=== PATIENT | female | born 1990 | race African-American/Black ===

== ENCOUNTER → 2023-11-26 14:08 | Outpatient (BNVA) | payer OTHER, SELFPAY | PROVIDERS: Visit Provider Physician Assistant | DX: Z13.89 Encounter for screening for other disorder (principal) | CPT/HCPCS: 99203 ==

== ENCOUNTER → 2023-12-17 09:37 | Outpatient (BNVA) | payer OTHER, SELFPAY | PROVIDERS: Visit Provider Physician Assistant | DX: Z13.89 Encounter for screening for other disorder (principal) | CPT/HCPCS: 99213 ==

== ENCOUNTER 2024-01-13 14:00 | Outpatient (RCR) | payer OTHER, SELFPAY ==
--- NOTE | 2023-12-24 15:17 | MHC.PT.EP ---
[facility] [place] [facility] [place] [facility] [address] [phone] F: [phone] F: [phone] F: [phone] F: [phone] Physical Therapy Plan of Care Date of Evaluation: 12/24/23 Date of Surgery: Diagnosis: Lumbar strain s/p fall. Assessment: Pt is a 33 y/o female referred to PT for eval and treat of lumbar strain s/p fall on ice at work on November 16 2023 which is resulting in decreased tolerance for standing, sitting, and walking for increased duration as well as performing fitness activities secondary to decreased trunk ROM, decreased core strength, increased LE tissue tension, and midline LBP. Pt is deemed an appropriate candidate to receive skilled PT services to address their physical impairments in order to improve their functional ability. Frequency and Duration: The patient will be seen 2 x/ wk x 4 wks. Short Term Goals: Initiate home program. Improve baseline pain to at most 0-3/10; initial: 1-5/10. I with back basics. [facility] Goals: I with home program. Pt will reports no pain with walking long distances. Pt will return to gym fitness activities. Improve Core strength by at least 1/2 MMT grade. Treatment Plan: Modalities to reduce pain, spasms and effusion. Manual therapy to restore motion and function. Therapeutic exercise to improve strength and flexibility. Neuromuscular re-education for posture and balance. Therapeutic activities to return to functional activities of daily living. Electronically signed by: Dmitry Escobar PT. Please sign and return to therapist. Thank you for your referral.
--- NOTE | 2024-04-18 16:00 | MHC.PT.DC ---
[facility] [place] [facility] [place] Office [place] Office [address] [phone] F: [phone] F: [phone] F: [phone] F: [phone] Physical Therapy Discharge Report Diagnosis: Lumbar strain s/p fall. Date of Surgery: Date of Evaluation: 12/24/23 Date of Discharge: 04/18/24 Treatments to Date: 5 Cancellations to Date: 1 No Shows to Date: 3 Discharge Status: Visit Non-compliance Discharge Summary: . Electronically signed by: Dmitry Escobar PT. Please sign and return to therapist. Thank you for your referral.
== END 2024-04-18 16:01 | disposition home or self-care (01) ==
LOC: HO.PT 14:00
PROVIDERS: Visit Provider Physician Assistant
DX: S39.012D Strain of muscle, fascia and tendon of lower back, subsequent encounter (principal)
CPT/HCPCS: 97110; 97161; 97530

== ENCOUNTER 2024-04-28 09:58 | Outpatient (AMB) | payer OTHER, SELFPAY ==
[2024-04-28 10:12] VITALS: BP 142/72; PULSE 73; O2SAT 99; BMI 43.3
--- NOTE | 2024-04-28 10:12 | A.OFFPC_ITS ---
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 Had takent Butabital/acetaminophen in the past, she states she would also like to talk about weight loss, and is concerned about PCOS, has a history of Fibroid, and would like to address spots on her eyelids. 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 ?? Prior PCP:? [facility] Last office visit/CPE:? 2019 Acute issue(s):? H/A Wt Loss PCOS Fibroid Eyelid ?? PMHx:? Headaches. SurgHx:? None FHx:? Mom: SLE, DM, HTN, Cervical CA. Dad: HTN, EtOH. SocHx:? Nonsmoker. EtOH Social. No drugs. [facility] Medical History (Updated 04/28/24 @ 11:15 by Malvin Sesay MD) Uterine fibroid Headache Surgical History (Updated 04/28/24 @ 10:23 by Claribel Wade CMA) No pertinent past surgical history Family History (Updated 04/28/24 @ 10:26 by Claribel Wade CMA) Mother Asthma High blood pressure Lupus Diabetes Thyroid disorder Father Alcoholism Sister High cholesterol Social History (Updated 04/28/24 @ 10:29 by Claribel Wade CMA) Household Members: Children Both parents involved: No Caregiver staying overnight: No Housing: Apartment Are you a primary residential care facility manager to a significant other at home: No Do you presently have visiting nurse or other home services: No 75 years or older and lives alone: No Alcohol intake: current Alcohol intake frequency: holidays/special occasions only Alcohol type: wine Patient Tobacco Use Status: Never used Tobacco e-Cigarette/Vaping Use: Never Used Special gaurav needs: No Agree to transfusion: Yes service: No Current occupational status: employed 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 Cognitive needs: No Hearing needs: No Vision needs: No Questionnaire PHQ-9 Over the last 2 weeks, how often have you been bothered by any of the following problems? 1. Little interest or pleasure in doing things: several days 2. Feeling down, depressed, or hopeless: not at all 3. Trouble falling or staying asleep, or sleeping too much: more than half the days 4. Feeling tired or having little energy: more than half the days 5. Poor appetite or overeating: several days 6. Feeling bad about yourself - or that you are a failure or have let yourself or your family down: not at all 7. Trouble concentrating on things, such as reading the newspaper or watching television: several days 8. Moving or speaking so slowly that other people could have noticed. Or the opposite - being so fidgety or restless that you have been moving around a lot more than usual: not at all 9. Thoughts that you would be better off or of hurting yourself in some way: not at all Total score: 7 Source: Developed by Drs. Say Narayan, Lois Spring, Pedro Chase and colleagues, with an educational wilber from [employer]. AUDIT C Alcohol Use Questionnaire (AUDIT-C) 1. How often do you have a drink containing alcohol?: 2-4 times a month 2. How many drinks containing alcohol do you have on a typical day when you are drinking?: 1 or 2 3. How often do you have six or more drinks on one occasion?: Never Total Score: 2 APRIL-7 AMB Questionnaire APRIL-7 Date APRIL - 7 assessed: 04/28/24 Feeling nervous, anxious, or on edge: 1 = Several days Not being able to stop or control worryin = More than half the days Worrying too much about different things: 1 = Several days Trouble relaxin = Several days Being so restless that it is hard to sit still: 0 = Not at all Becoming easily annoyed or irritable: 0 = Not at all Feeling afraid as if something awful might happen: 0 = Not at all Total APRIL-7 score (0-4 normal; 5-9 mild; 10-14 moderate; 15-21 severe): 5 Source: Developed by Drs. Say Narayan, Lois Spring, Pedro Chase and colleagues, with an educational wilber from [employer]. Review of Systems Const Denies chills, Denies fatigue, Denies fever(s), Denies headache(s) and Denies weakness ENT Denies dizziness and Denies headache(s) Card Denies chest pain, Denies lightheadedness, Denies dyspnea and Denies other (Palpitations) Resp Denies cough, Denies dyspnea, Denies wheezing and Denies other ( shortness of breath) Musc Denies numbness and Denies tingling Neuro Denies dizziness, Denies headache(s), Denies numbness, Denies tingling, Denies paresthesias and Denies weakness Psych Denies anxiety and Denies depression Endo Denies fatigue Aller/Immun Denies wheezing Physical exam (Primary Care) Vital Signs: Last Vital Signs Pulse 73 04/28/24 10:12 BP 142/72 H 04/28/24 10:12 Pulse Ox 99 04/28/24 10:12 Oxygen Delivery Method Room Air 04/28/24 10:12 BMI result Body Mass Index 43.3 Tobacco/Smoking Status: Tobacco use Status Tobacco use date assessed 04/28/24 04/28/24 10:35 Patient Tobacco Use Status Never used Tobacco 04/28/24 10:35 e-Cigarette/Vaping Use Never Used 04/28/24 10:35 PHQ-9: PHQ-9 Score PHQ-9: Total score 7 04/28/24 10:50 Const General: no acute distress and well developed Nutritional Appearance: well nourished Orientation/consciousness: patient oriented x3 HENMT Other: Yellow stripes on both eyelids Head: Yes normocephalic and Yes atraumatic Eyes General: appearance normal, both eyes and all related structures Pupils: Equal, round and reactive pupils present EOM: EOMs intact bilaterally Resp Effort & Inspection: normal respiratory effort Auscultation: clear to auscultation bilaterally Cardio Rate: regular rate Rhythm: regular rhythm Heart sounds: S1 normal heart sound present, S2 normal heart sound present, no gallops, no murmurs and no rubs Neuro General: patient oriented x3 and gait normal Cranial nerves: Yes Equal, round and reactive pupils present Psych Affect: normal affect Assessment and Plan Assessment & Plan (1) Headache: Code(s): R51.9 - Headache, unspecified Plan: Frequent?and?chronic?ongoing?headaches?which?she?has?managed?with?ibuprofen?and? Fioricet?in?the?past. Get?them?only?about?twice?per?week. ?Does?not?appear?to?be?rebound?headache Will?give?her?a?limited?script?of?Fioricet; 8?per?month She?will?try?relaxation,?nasal?saline?and?ibuprofen?prior?to?using?Fioricet. If?this?is?not?helping?or?she?is?needing?increased?usage, will?refer?to?Neurology. (2) Morbid obesity with BMI of 40.0-44.9, adult: Code(s): E66.01 - Morbid (severe) obesity due to excess calories; Z68.41 - Body mass index [BMI] 40.0-44.9, adult Plan: Will?monitor?and?encouraged?weight?loss (3) History of uterine fibroid: Code(s): Z86.018 - Personal history of other benign neoplasm Plan: Referred?to?production material coordinator (4) Screening for cervical cancer: Code(s): Z12.4 - Encounter for screening for malignant neoplasm of cervix Plan: Referred?to?production material coordinator (5) Xanthelasma of eyelid, bilateral: Code(s): H02.63 - Xanthelasma of right eye, unspecified eyelid; H02.66 - Xanthelasma of left eye, unspecified eyelid Plan: Check?labs?including?cholesterol?levels May?need?referral?to?Dermatology Patient?has?all around patternmaker?and?can?discuss?with?her?eye?doctor?as?well. (6) Laboratory exam ordered as part of routine general medical examination: Code(s): Z00.00 - Encounter for general adult medical examination without abnormal findings Plan: Check?lab Orders: Orders Complete Blood Count Auto Diff Today Z00.00 - Encounter for general adult medical examination without abnormal findings Microalbumin, Random (w Creat) Today I10 - Essential (primary) hypertension Lipid Panel Today Z00.00 - Encounter for general adult medical examination without abnormal findings TSH reflex Free T4 Today Z00.00 - Encounter for general adult medical examination without abnormal findings Comprehensive [place]. Panel Fast Today Z00.00 - Encounter for general adult medical examination without abnormal findings UA and rflx microscopic Today Z00.00 - Encounter for general adult medical examination without abnormal findings Erythrocyte Sedimentation Rate Today R51.9 - Headache, unspecified Referrals GOLD FRAME ASSEMBLER Referral Z12.4 - Encounter for screening for malignant neoplasm of cervix, Z86.018 - Personal history of other benign neoplasm Medications: New hxltscmvzq-wnzffwlwkcuqi-yray 50-300-40 mg (Fioricet) MassPat Verified. 1 cap PO DAILY 30 days PRN 8 caps 0RF headache Coding Level of Care Code New Pt Level 4 (40961) Diagnoses Headache R51.9 Morbid obesity with BMI of 40.0-44.9, adult E66.01; Z68.41 History of uterine fibroid Z86.018 Screening for cervical cancer Z12.4 Xanthelasma of eyelid, bilateral H02.63; H02.66 Laboratory exam ordered as part of routine general medical examination Z00.00
== END 2024-04-28 11:35 | disposition home or self-care (01) ==
PROVIDERS: PCP Family Medicine; Visit Provider Family Medicine
DX: R51.9 Headache, unspecified (principal); E66.01 Morbid (severe) obesity due to excess calories; Z68.41 Body mass index [BMI] 40.0-44.9, adult; Z86.018 Personal history of other benign neoplasm; Z12.4 Encounter for screening for malignant neoplasm of cervix; H02.63 Xanthelasma of right eye, unspecified eyelid; H02.66 Xanthelasma of left eye, unspecified eyelid; Z00.00 Encounter for general adult medical examination without abnormal findings
CPT/HCPCS: 99204

== ENCOUNTER 2024-04-28 11:25 | Outpatient (REF) | payer OTHER, SELFPAY ==
[2024-04-28 14:20] LABS: Appearance Urine Clear; Color Urine Yellow; Glucose Urine UA Negative (Negative); Leukocyte Esterase Urine Negative (Negative); Nitrite Urine Negative (Negative); PH 5.5 (5.0-9.0); UMIC TRIGGER UA YES; Urine Blood Trace (Negative); Urine Ketones Negative (Negative); Urine Protein Negative (Neg-Trace)
[2024-04-28 14:21] LABS: MANUAL DIFF FLAG NO
[2024-04-28 14:26] LABS: Bacteria Urine 1+ (None Seen); Hyaline Casts Urine 0-2 /LPF (0-2); RBC Urine 0-2 /HPF (0-2); Squamous Epithelial Cell Urine 0-2 /HPF (0-2); WBC Urine 0-5 /HPF (0-5)
[2024-04-28 14:47] LABS: Basophils Percent Auto 0.7 % (0-2); Eosinophils Absolute Auto 0.1 X10*3/uL (0.0-0.4); Eosinophils Percent Auto 0.8 % (0-4); Hematocrit 38.8 % (37.0-47.0); Hemoglobin 13.2 g/dl (12.0-16.0); Imm Gran Abs Auto 0.02 X10*3/uL (0.00-0.03); Imm Gran Pct Auto 0.3 % (0.0-0.4); Lymphocytes Absolute Auto 2.6 X10*3/uL (1.2-4.9); Lymphocytes Percent Auto 41.9 % (20-40); Mean Corpuscular Hemoglobin 27.6 pg (27.0-33.0); Monocytes Absolute Auto 0.4 X10*3/uL (0.1-1.2); Monocytes Percent Auto 6.4 % (2-11); Neutrophils Percent Auto 49.9 % (45-73); Platelet Count 309 X10*3/uL (160-400); Red Blood Count 4.79 X10*6/uL (4.20-5.50); Red Cell Distribution Width 12.6 % (11.0-16.0); White Blood Count 6.1 X10*3/uL (4.8-10.8)
[2024-04-28 14:51] LABS: Alanine Aminotransferase 14 U/L (0-31); Alkaline Phosphatase 61 U/L (39-117); Anion Gap 11 (12-20); Aspartate Amino Transferase 16 U/L (5-31); Bilirubin Total 0.2 mg/dL (0.0-1.0); Blood Urea Nitrogen 16 mg/dL (9-16); Calcium 10.1 mg/dL (8.4-10.2); Carbon Dioxide 29 mmol/L (22-29); Chloride 104 mmol/L (96-108); Cholesterol 202 mg/dL (<200); Estimated Glomerular Filt Rate > 60; Glucose Fasting 92 mg/dL (60-99); HDL Cholesterol 47 mg/dL (>40); LDL Cholesterol Calculated 138 mg/dL (<100); Potassium 4.2 mmol/L (3.3-5.1); Sodium 140 mmol/L (135-145); Triglycerides 85 mg/dL (<150)
[2024-04-28 14:52] LABS: Creatinine Urine 182.07 mg/dL; Microalbum/Creatinine Ratio Ur 3.2 ug/mg cr (<30)
[2024-04-28 14:57] LABS: TSH reflex Free T4 1.26 uIU/mL (0.32-4.0)
[2024-04-28 15:22] LABS: Erythrocyte Sedimentation Rate 17 MM/HR (0-20)
== END 2024-04-28 11:26 | disposition home or self-care (01) ==
LOC: HO.WFDLDS 11:25
PROVIDERS: Visit Provider Family Medicine
DX: Z00.00 Encounter for general adult medical examination without abnormal findings (principal); I10 Essential (primary) hypertension; R51.9 Headache, unspecified
CPT/HCPCS: 36415; 80053; 80061; 81001; 82043; 82570; 84443; 85025; 85652

== ENCOUNTER 2024-06-08 10:20 | Outpatient (REF) | payer OTHER, SELFPAY ==
[2024-06-13 04:10] LABS: CT PCR NOT DETECTED (Not Detect.); NG PCR NOT DETECTED (Not Detect.)
[2024-06-13 09:01] LABS: Bacterial Vaginosis PCR POSITIVE (Negative); Candida Group PCR NOT DETECTED (Not Detect); Candida glab krusei PCR NOT DETECTED (Not Detect); Trichomonas vaginalis PCR NOT DETECTED (Not Detect)
[2024-06-15 11:43] LABS: HPV mRNA E6/E7 Detected (Not Detected)
[2024-06-19 14:44] LABS: HPV 16 RNA Not Detected
== END 2024-06-08 10:21 | disposition home or self-care (01) ==
LOC: HO.LAB 10:20
PROVIDERS: PCP Family Medicine; Visit Provider Advanced Practice Midwife
DX: Z12.4 Encounter for screening for malignant neoplasm of cervix (principal); Z11.51 Encounter for screening for human papillomavirus (HPV); Z20.2 Contact with and (suspected) exposure to infections with a predominantly sexual mode of transmission; N89.8 Other specified noninflammatory disorders of vagina; E66.01 Morbid (severe) obesity due to excess calories; Z68.41 Body mass index [BMI] 40.0-44.9, adult
CPT/HCPCS: 0352U; 36415; 87491; 87591; 87624; 87625; 88175

== ENCOUNTER 2024-06-08 10:20 | Outpatient (AMB) | payer OTHER, SELFPAY ==
--- NOTE | 2024-06-08 10:39 | MHC.OFFVIS ---
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 COORDINATOR Annual/PCP Ref Manufacturing Production Technician Services: Manufacturing Production Technician Present Information Interpreted: clinical only Heater Planer Operator: Heater Planer Operator Present Allergies No Known Allergies Allergy (Verified 06/08/24 10:43) Medication List - Last Reconciled 06/08/24 by Maria T Kingsley CNM rrphyauquo-rzojticmms-cde-cod 63-805-46-30 mg 1 cap PO Q4H PRN newaehpzwv-eamonyushjbec-ufbn 50-300-40 mg (Fioricet) 1 cap PO DAILY PRN 30 days ibuprofen 800 mg PO TID Is last menstrual period known: Yes Last menstrual period: 05/25/24 Do you need a note to return to daycare/school/sports/work: No HPI HPI ADMISSIONS COORDINATOR Annual/PCP Ref: Details: 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 She thought she had a [facility] and there were no Pap results in her portal. She had a [facility] 3 years [facility] a [facility] but she did not like it so she had it removed and now she used condoms her last intercourse was in March she is maybe interested in getting on control pills this came up during our discussion. She will still use condoms for safer sex. She is interested in getting tested for STIs. She was told she had a small fibroid but it was benign her periods have gotten a little bit heavier however. [facility], [facility] Medical History Uterine fibroid Headache Surgical History No pertinent past surgical history Family History Mother Asthma High blood pressure Lupus Diabetes Thyroid disorder Father Alcoholism Sister High cholesterol Social History Household Members: Children Both parents involved: No Caregiver staying overnight: No Housing: Apartment Are you a primary daycare manager to a significant other at home: No Do you presently have visiting nurse or other home services: No 75 years or older and lives alone: No Alcohol intake: current Alcohol intake frequency: holidays/special occasions only Alcohol type: wine Patient Tobacco Use Status: Never used Tobacco e-Cigarette/Vaping Use: Never Used Special gaurav needs: No Agree to transfusion: Yes service: No Current occupational status: employed 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 Cognitive needs: No Hearing needs: No Vision needs: No Female Reproductive History Menstrual Date of last menstrual period: 05/25/24 control method: none Total pregnancies: 2 Full term: 2 History of abnormal pap smear: No (previous pap 2022,neg(per patient)) Physical Exam Vital Signs: Last Vital Signs BP 118/62 06/08/24 10:42 BMI result Body Mass Index 43.1 Const General: healthy appearing, comfortable, no acute distress, well developed and alert Nutritional Appearance: average body habitus Orientation/consciousness: patient oriented x3 Limitations: no limitations HEENT Head: Yes normocephalic Neck Neck: Yes normal visual inspection Chest Chest palpation & inspection: normal inspection of the chest Breast/axilla inspection: normal inspection of the breasts and normal inspection of the axillae Breast/axilla palpation: normal palpation of the breasts and normal palpation of the axillae Resp Effort & Inspection: normal respiratory effort GI Inspection: Yes normal to inspection, No Abdominal wall edema and No distended Palpation (GI): Soft to palpation and nontender Other: Multiparous cervix pink with multiple nabothian cysts visible. Discharge is clear healthy appearing uterus does not feel enlarged anteverted mobile nontender adnexa nontender very good tone with Kegel General: Yes bladder normal to palpation External Female Exam: normal external appearance and normal appearance of the urethra Speculum Exam - Vagina: normal appearance of the vagina, normal palpation and normal vaginal discharge Speculum Exam - Cervix: normal appearance of the cervix, normal palpation and nontender Bimanual exam- vagina & uterus: normal bimanual exam, normal palpation, uterine size normal, bladder normal to palpation, consistency normal, normal palpation, uterine mobility normal, uterine shape normal, No Cervical tenderness present, non-tender and no cervical motion tenderness Bimanual Exam- Adnexa, other: normal adnexae, no masses, normal and No adnexal tenderness Neuro General: patient oriented x3 Assessment & Plan Assessment & Plan (1) History of uterine fibroid: Code(s): Z86.018 - Personal history of other benign neoplasm Category: Medical (2) Screening for cervical cancer: Code(s): Z12.4 - Encounter for screening for malignant neoplasm of cervix Category: Medical (3) Encounter for screening examination for sexually transmitted disease: Code(s): Z11.3 - Encounter for screening for infections with a predominantly sexual mode of transmission Category: Medical (4) control counseling: Code(s): Z30.09 - Encounter for other general counseling and advice on contraception Category: Medical (5) Morbid obesity with BMI of 40.0-44.9, adult: Code(s): E66.01 - Morbid (severe) obesity due to excess calories; Z68.41 - Body mass index [BMI] 40.0-44.9, adult Category: Medical Plan -----Discussed in this visit the following: healthy balanced diet, regular and consistent exercise, getting recommended health screens, doing the best she can for her particular health concerns, kegel exercises, pap smear screening and followup recommendations, mammography screening and SBE, normal changes in cycles in her life stage--- . Discussed condom use she is planning to continue with them. However she decided that she is interested in getting on control I am prescribing progestin only pills for her because she is 34 years old and 1 of her blood pressures was a little bit borderline elevated it it. I recommend she start at the beginning of her next period 1 pill every day I am also ordering a pelvic ultrasound to check on her fibroid and we can have a follow-up visit that can be a tele visit if she chooses if her blood pressure has been checked and is stable with her primary care provider. Will have the visit after the ultrasound and after she has been on the pills see how she is doing. I am ordering blood work for her to get done downstairs for STI screens.. Orders: Orders Hepatitis C Antibody Today Z11.3 - Encounter for screening for infections with a predominantly sexual mode of transmission, Z12.4 - Encounter for screening for malignant neoplasm of cervix, Z86.018 - Personal history of other benign neoplasm US pelvic and transvaginal Today Z11.3 - Encounter for screening for infections with a predominantly sexual mode of transmission, Z86.018 - Personal history of other benign neoplasm Hepatitis B Surface Antigen Today Z11.3 - Encounter for screening for infections with a predominantly sexual mode of transmission, Z12.4 - Encounter for screening for malignant neoplasm of cervix, Z86.018 - Personal history of other benign neoplasm HIV Ab/Ag Today Z11.3 - Encounter for screening for infections with a predominantly sexual mode of transmission, Z12.4 - Encounter for screening for malignant neoplasm of cervix, Z86.018 - Personal history of other benign neoplasm Syphilis Screen Today Z11.3 - Encounter for screening for infections with a predominantly sexual mode of transmission, Z12.4 - Encounter for screening for malignant neoplasm of cervix, Z86.018 - Personal history of other benign neoplasm Medications: New norethindrone (contraceptive) 0.35 mg PO DAILY 84 tabs 0RF Coding Level of Care Code New Pt Prev Care 18-39yr(22560 Diagnoses History of uterine fibroid Z86.018 Screening for cervical cancer Z12.4 Encounter for screening examination for sexually transmitted disease Z11.3 control counseling Z30.09 Morbid obesity with BMI of 40.0-44.9, adult E66.01; Z68.41
[2024-06-08 10:42] VITALS: BP 118/62; BMI 43.1
== END 2024-06-08 13:05 | disposition home or self-care (01) ==
LOC: HO.HWSM 10:20
PROVIDERS: PCP Family Medicine; Visit Provider Advanced Practice Midwife
DX: Z01.419 Encounter for gynecological examination (general) (routine) without abnormal findings (principal); Z30.09 Encounter for other general counseling and advice on contraception; E66.01 Morbid (severe) obesity due to excess calories; Z68.41 Body mass index [BMI] 40.0-44.9, adult
CPT/HCPCS: 99385

== ENCOUNTER 2024-06-14 11:14 | Outpatient (REF) | payer OTHER, SELFPAY ==
--- NOTE | ~2024-06-14 | US_ITS ---
EXAMINATION: US PELVIS CLINICAL INFORMATION: History of uterine fibroid, screening, last menstrual period 05/25/2024. COMPARISON: None available. TECHNIQUE: Ultrasound of the pelvis is performed using both transabdominal and transvaginal transducers along with Doppler. Transvaginal imaging is performed due to inadequate visualization transabdominally. FINDINGS: The uterus is anteverted and measures 19.0 x 7.9 x 10.2 cm. 7.3 x 6.6 x 7.9 cm fibroid. Endometrial thickness is 9 mm, although visualization of the endometrium is somewhat limited due to the uterine fibroid. No significant free fluid. Nabothian cysts with associated echogenic foci characteristic of punctate calcifications. Right ovary measures 3.1 x 1.9 x 2.3 cm, volume 7.1 mL. Left ovary measures 4.0 x 2.4 x 2.2 cm, volume 11.0 mL. US/US pelvic and transvaginal IMPRESSION: 1. Enlarged uterus with large 7.9 cm uterine fibroid. 2. Endometrial thickness is 9 mm, although visualization of the endometrium is somewhat limited due to the uterine fibroid.
[2024-06-15 07:50] LABS: Syphilis Screen Nonreactive (Nonreactive)
[2024-06-15 08:11] LABS: HBsAGNum1 0.24 S/CO (0.00-0.99); HIV AB/AG Nonreactive (Nonreactive); HIV Num 1 0.05 S/CO (0.00-0.99); Hepatitis B Surface Antigen Negative (Negative); ~HepC Num1 0.09 S/CO (0.00-0.79); ~Hepatitis C Antibody Nonreactive (Nonreactive)
== END 2024-06-14 11:15 | disposition home or self-care (01) ==
LOC: HO.US 11:14
PROVIDERS: PCP Family Medicine; Visit Provider Advanced Practice Midwife
DX: Z11.4 Encounter for screening for human immunodeficiency virus [HIV] (principal); Z86.018 Personal history of other benign neoplasm; Z20.2 Contact with and (suspected) exposure to infections with a predominantly sexual mode of transmission
CPT/HCPCS: 36415; 76830; 76856; 86780; 86803; 87340; 87389

== ENCOUNTER 2024-07-20 09:54 | Outpatient (AMB) | payer OTHER, SELFPAY ==
--- NOTE | 2024-07-20 10:16 | MHC.PC.OV ---
Vital Signs 07/20/24 10:18 Height 5 ft 4 in Weight 252 lb 2 oz BMI 43.3 BP 112/80 Blood Pressure Location Rt brachial Position Sitting Pulse 85 Pulse Source Pulse Oximeter Pulse Oximetry (%) 96 Oxygen Delivery Method Room Air Intake Visit Reasons: CPE with f/u labs and health maint. Intake Note: Patient reports she is here for her physical, review labs and ultrasound. Patient has no other concerns. Utility Appraiser Required: No Accompanied by: Self / Same As Patient Allergies No Known Allergies Allergy (Verified 07/20/24 10:23) Tobacco use date assessed: 04/28/24 Dental Screening Dental Screen Date: 04/28/24 HPI HPI Comments History of Present Illness Details This is a 34-year-old female with a past medical history of obesity and uterine fibroid presenting for her physical exam. Her primary care physician is Dr. Sesay. We reviewed her blood work that was done in April 2024. She has mild hyperlipidemia with an LDL of 138. She will work on lifestyle modifications which were outlined in detail for her today. This can be rechecked in 1 year. She saw Gynecology for evaluation of pelvic pain. She had an ultrasound which showed an enlarged uterus and 7.9 cm uterine fibroid. She has a follow up appointment with Gynecology today to review this and discuss treatment. She had an abnormal Pap and has a colposcopy scheduled. Her urinalysis in April showed trace blood. She thinks she may have been on her menstrual period or ending it at at the time. She will have this repeated 5-7 days after completion of her menstrual period. Patient says she has some anxiety, but right now she feels like she is managing it, and she declines referral to behavioral health. She denies depression. Recommended annual influenza vaccine at her pharmacy since it is not available in the office today. Tdap administered. Patient will update eye and dental exams. ROS: Constitutional: No unexplained weight loss, fever, chills, fatigue or night sweats. Eyes: No vision changes, blurry vision, double vision, eye pain, eye redness, eye discharge. ENT: No hearing loss, sneezing, congestion, runny nose or sore throat. Respiratory: No shortness of breath, cough or sputum production. Cardiovascular: No chest pain, chest pressure or chest discomfort. No palpitations or pedal edema. Gastrointestinal: No anorexia, nausea, vomiting or diarrhea. No abdominal pain or blood in stool. Genitourinary: No dysuria, hematuria, urinary frequency. +Pelvic pain evaluated by SITE HEAD. Neurologic: No headache, dizziness, syncope, unilateral weakness, ataxia, numbness or tingling in the extremities. Musculoskeletal: No muscle pain, back pain, joint pain or swelling. Hematologic/Lymphatics: No bleeding or bruising. No painful lymph nodes. Skin: No rash or itching. Endocrine: No cold or heat intolerance. No polyuria or polydipsia. Psychiatric: No depression. No SI/HI. Physical exam: Constitutional: Alert, in no distress. Head: Normocephalic. Eyes: Pupils are equal, round and reactive to light. Extraocular muscles intact. Ear, Nose and Throat: Canals clear. TMs normal. Normal nasal mucosa. No nasal discharge. No oral lesions. Neck: Supple, Full range of motion. No lymphadenopathy. No palpable thyroid masses. Respiratory: Clear to auscultation. Cardiovascular: S1 S2 regular. No murmurs. Gastrointestinal: Abdomen soft, non-tender, non-distended. Normal bowel sounds. No palpable masses. Neurologic: No focal neurological deficits. Symmetric patellar reflexes. Moves all extremities spontaneously. Sensation intact bilaterally. Skin: No rashes. Musculoskeletal: No gross deformities. Normal range of motion. Extremities: Warm and well perfused. No clubbing, cyanosis or edema. . Psychiatric: Normal mood and affect [facility] Medical History (Updated 07/20/24 @ 11:05 by MAGNUS Rubalcava) Anxiety Hyperlipidemia Uterine fibroid Headache Surgical History No pertinent past surgical history Family History Mother Asthma High blood pressure Lupus Diabetes Thyroid disorder Father Alcoholism Sister High cholesterol Social History Household Members: Children Both parents involved: No Caregiver staying overnight: No Housing: Apartment Are you a primary healthcare consultant to a significant other at home: No Do you presently have visiting nurse or other home services: No 75 years or older and lives alone: No Alcohol intake: current Alcohol intake frequency: holidays/special occasions only Alcohol type: wine Patient Tobacco Use Status: Never used Tobacco e-Cigarette/Vaping Use: Never Used Special gaurav needs: No Agree to transfusion: Yes service: No Current occupational status: employed 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 Cognitive needs: No Hearing needs: No Vision needs: No Questionnaire APRIL-7 AMB Questionnaire APRIL-7 Date APRIL - 7 assessed: 04/28/24 Source: Developed by Drs. Say Narayan, Lois Spring, Pedro Chase and colleagues, with an educational wilber from [employer]. Physical exam (Primary Care) Vital Signs: Last Vital Signs Pulse 85 07/20/24 10:18 BP 112/80 07/20/24 10:18 Pulse Ox 96 07/20/24 10:18 Oxygen Delivery Method Room Air 07/20/24 10:18 BMI result Body Mass Index 43.3 Tobacco/Smoking Status: Tobacco use Status Tobacco use date assessed 04/28/24 07/20/24 10:17 Patient Tobacco Use Status Never used Tobacco 07/20/24 10:17 e-Cigarette/Vaping Use Never Used 07/20/24 10:17 Immunizations Boostrix Tdap 2.5 Lf unit-8 mcg-5 Lf/0.5 mL intramuscular syringe Performing Provider: MAGNUS Rubalcava [place] [facility] [place] [facility] Administered by: Jojo Lorenzana CMA on 07/20/24 11:02 Dose Route Admin Location Dispensed Lot Number Expiration Date NDC Disaster Recovery Specialist 0.5 mL IM Left Deltoid 0.5 mL [id number] 08/16/26 81844-881-34 [employer] VIS Given Date VIS Provided VIS Publication Date 07/20/24 Single Vaccine 21 Eligibility Eligibility Date Funding Source Not [facility] Eligible 07/20/24 Private Assessment and Plan Assessment & Plan (1) Routine physical examination: Code(s): Z00.00 - Encounter for general adult medical examination without abnormal findings Plan: Patient is seen today for a routine physical. As part of this visit we reviewed the following issues, which are considered and essential part of preventative health in this age group: - Breast Cancer screening-due age 40 - Annual Lithoplate Maker exam - Screening for colon cancer - initial screening due age 45 unless there is a change in patient's health or family history indicating sooner screening. - Blood pressure screening - Cholesterol screening - Osteoporosis prevention including calcium/vitamin D intake, weight bearing exercise & smoking cessation - Nutritional and exercise counseling - Counseling of injury prevention including fire prevention, smoke alarms and seat belt usage - Screening for depression - Prevention of and/or testing for infectious diseases - Education about skin cancer - Recommendations about immunizations - Recommendation of an eye exam - Screening for substance abuse Follow up in 1 year for CPE. Orders: Orders Urine Culture Today R31.29 - Other microscopic hematuria UA w Microscopic Today R31.29 - Other microscopic hematuria TDaP Immunization Today Z23 - Encounter for immunization Coding Level of Care Code Est Pt Prev Care 18-39y(75065) Diagnoses Routine physical examination Z00.00
[2024-07-20 10:18] VITALS: BP 112/80; PULSE 85; O2SAT 96; BMI 43.3
== END 2024-07-20 11:10 | disposition home or self-care (01) ==
PROVIDERS: PCP Family Medicine; Visit Provider Physician Assistant Medical
DX: Z00.00 Encounter for general adult medical examination without abnormal findings (principal); Z23 Encounter for immunization
CPT/HCPCS: 90471; 90715; 99395

== ENCOUNTER 2024-07-20 13:55 | Outpatient (AMB) | payer OTHER, SELFPAY ==
--- NOTE | 2024-07-20 13:58 | A.OFFVIS_ITS ---
Vital Signs 07/20/24 14:01 Height 5 ft 4 in Weight 252 lb BMI 43.3 BP 112/68 Intake Visit Reasons: Ultrasound Follow up/BCP check Production Recorder Required: No Information Interpreted: clinical only Manager Content: Manager Content Present Allergies No Known Allergies Allergy (Verified 07/20/24 14:03) Medication List - Last Reconciled 07/20/24 by Mari aT Kingsley CNM norethindrone (contraceptive) 0.35 mg PO DAILY Is last menstrual period known: Yes Last menstrual period: 07/19/24 HPI HPI Ultrasound Follow up/BCP check: Details: Patient is here to review her ultrasound and follow-up on how she is doing with control pills that were prescribed at the last visit she wanted to get on control at that time her blood pressure had been a little borderline so she was prescribed progestin only pills. She had a history of fibroids and wanted to see how they were doing so we ordered an ultrasound. She also had a Pap smear done at that visit the Pap smear came back ASCUS with positive HPV and she has been referred for a colposcopy which is happening in about 2 weeks. She decided not to start the control pills and she is not sexually active at this time having broken up with that person. She does report that her periods are rather heavy and she does feels some pressure all the time. [facility] Medical History Anxiety Hyperlipidemia Uterine fibroid Headache Surgical History No pertinent past surgical history Family History Mother Asthma High blood pressure Lupus Diabetes Thyroid disorder Father Alcoholism Sister High cholesterol Social History Household Members: Children Both parents involved: No Caregiver staying overnight: No Housing: Apartment Are you a primary assurance services manager health care to a significant other at home: No Do you presently have visiting nurse or other home services: No 75 years or older and lives alone: No Alcohol intake: current Alcohol intake frequency: holidays/special occasions only Alcohol type: wine Patient Tobacco Use Status: Never used Tobacco e-Cigarette/Vaping Use: Never Used Special gaurav needs: No Agree to transfusion: Yes service: No Current occupational status: employed 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 Cognitive needs: No Hearing needs: No Vision needs: No Female Reproductive History Menstrual Age of Menarche: 10 Duration of menses: 6-7 days Date of last menstrual period: 07/19/24 Total pregnancies: 2 Full term: 2 Date of last pap smear: 06/08/24 (ASCUS) History of abnormal pap smear: Yes (2023) Physical Exam Vital Signs: Last Vital Signs BP 112/68 07/20/24 14:01 BMI result Body Mass Index 43.3 Results Reviewed Results Reviewed: Patient: Batsheva Helton MR#: [id number] : 1990 Acct:[id number] Age/Sex: 34 / F ADM Date: 06/14/24 Loc: HO.US Attending Dr: Maria T Kingsley CNM Ordering Physician: Maria T Kingsley CNM Date of Service: 06/14/24 Procedure(s): US pelvic and transvaginal Accession Number(s): [id number] cc: Malvin Sesay MD; Maria T Kingsley CNM~ EXAMINATION: US PELVIS CLINICAL INFORMATION: History of uterine fibroid, screening, last menstrual period 05/25/2024. COMPARISON: None available. TECHNIQUE: Ultrasound of the pelvis is performed using both transabdominal and transvaginal transducers along with Doppler. Transvaginal imaging is performed due to inadequate visualization transabdominally. FINDINGS: The uterus is anteverted and measures 19.0 x 7.9 x 10.2 cm. 7.3 x 6.6 x 7.9 cm fibroid. Endometrial thickness is 9 mm, although visualization of the endometrium is somewhat limited due to the uterine fibroid. No significant free fluid. Nabothian cysts with associated echogenic foci characteristic of punctate calcifications. Right ovary measures 3.1 x 1.9 x 2.3 cm, volume 7.1 mL. Left ovary measures 4.0 x 2.4 x 2.2 cm, volume 11.0 mL. US/US pelvic and transvaginal IMPRESSION: 1. Enlarged uterus with large 7.9 cm uterine fibroid. 2. Endometrial thickness is 9 mm, although visualization of the endometrium is somewhat limited due to the uterine fibroid. Dictated By: Fay Rios MD Signed By: <Electronically signed by Fay Rios MD in OV> 06/19/24 1531 DD/ 1128 TD/TT: Knitting Demonstrator: Her Pap smear of shows ASCUS with positive HPV. She has been referred for colposcopy and that appointment is on 08/03/2024. Assessment & Plan Assessment & Plan (1) Screening for cervical cancer: Comment: 06/08/24 pap shows ASCUS with positive HPV. Please refer for colpo-has appointment 08/03/2024 for colpo. Code(s): Z12.4 - Encounter for screening for malignant neoplasm of cervix Category: Medical (2) History of uterine fibroid: Comment: Review at the follow-up visit -consider referral. Code(s): Z86.018 - Personal history of other benign neoplasm Category: Medical Plan I reviewed the ultrasound with the patient and the enlarged fibroid definitely could explain her heavier periods and the sensation of pressure she feels. Discussed that I would discuss with joinery patternmaker and decide on the best place to refer her but then she reminded me that in fact she already will be seen joinery patternmaker on 08/03/2024 for colposcopy for her abnormal Pap smear. Discussed fibroids in general and that they can definitely contribute to cramp ear heavier periods. She is not sexually active right now so she decided not to start the control pills and she does not need control at this time she broke up with that person. She is open to future childbearing she were with the right person. Discussed that she may want to have discussions about preserving her uterus and asking questions about future pregnancies as part of what ever discussion, with whoever she ends up seeing and being referred to for her fibroid. Coding Level of Care Code Est Pt Level 3 (11135) Diagnoses Screening for cervical cancer Z12.4 History of uterine fibroid Z86.018
[2024-07-20 14:01] VITALS: BP 112/68; BMI 43.3
== END 2024-07-20 14:53 | disposition home or self-care (01) ==
PROVIDERS: PCP Family Medicine; Visit Provider Advanced Practice Midwife
DX: Z12.4 Encounter for screening for malignant neoplasm of cervix (principal); Z86.018 Personal history of other benign neoplasm
CPT/HCPCS: 99213

== ENCOUNTER → 2024-07-20 13:55 | Outpatient (BNVA) | payer OTHER, SELFPAY | PROVIDERS: PCP Family Medicine; Visit Provider Advanced Practice Midwife ==

== ENCOUNTER 2024-08-03 11:57 | Outpatient (AMB) | payer OTHER, SELFPAY ==
--- NOTE | 2024-08-03 12:05 | MHC.OFFVIS ---
Vital Signs 08/03/24 12:13 Height 5 ft 4 in Weight 251 lb 5.231 oz BMI 43.1 Intake Visit Reasons: Colposcopy/ us follow up Program Consultant Required: No Information Interpreted: non-clinical & clinical Corporate Recycling Manager: Corporate Recycling Manager Present ([place] ALLISON) Accompanied by: Self / Same As Patient Allergies No Known Allergies Allergy (Verified 08/03/24 12:14) Is last menstrual period known: Yes Last menstrual period: 07/11/24 HPI Comments Details: Presenting referred from Maria T Kingsley CNM regarding ascus/HPV E6 E7 positive, and abnormal uterine bleeding. The patient is complaining of heavy menstrual cycles associated with pelvic pressure and pain. Last ultrasound showed the following: The uterus is anteverted and measures 19.0 x 7.9 x 10.2 cm. 7.3 x 6.6 x 7.9 cm fibroid. Endometrial thickness is 9 mm, although visualization of the endometrium is somewhat limited due to the uterine fibroid. No significant free fluid. Nabothian cysts with associated echogenic foci characteristic of punctate calcifications. Right ovary measures 3.1 x 1.9 x 2.3 cm, volume 7.1 mL. Left ovary measures 4.0 x 2.4 x 2.2 cm, volume 11.0 mL. [facility] Medical History (Updated 08/03/24 @ 12:33 by Edmundo Hathaway MD) Anxiety Hyperlipidemia Uterine fibroid Headache Surgical History No pertinent past surgical history Family History Mother Asthma High blood pressure Lupus Diabetes Thyroid disorder Father Alcoholism Sister High cholesterol Social History Household Members: Children Both parents involved: No Caregiver staying overnight: No Housing: Apartment Are you a primary animal care specialist to a significant other at home: No Do you presently have visiting nurse or other home services: No 75 years or older and lives alone: No Alcohol intake: current Alcohol intake frequency: holidays/special occasions only Alcohol type: wine Patient Tobacco Use Status: Never used Tobacco e-Cigarette/Vaping Use: Never Used Special gaurav needs: No Agree to transfusion: Yes service: No Current occupational status: employed 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 Cognitive needs: No Hearing needs: No Vision needs: No Female Reproductive History Menstrual Age of Menarche: 10 Date of last menstrual period: 07/11/24 Review of Systems Const All systems reviewed & are unremarkable except as noted in HPI and below Physical Exam Vital Signs: BMI result Body Mass Index 43.1 General: Yes no CVA tenderness External Female Exam: normal external appearance and normal appearance of the urethra Speculum Exam - Vagina: normal appearance of the vagina, normal palpation, no lesions and no masses Speculum Exam - Cervix: normal appearance of the cervix, normal palpation, no lesions, no masses and nontender Bimanual exam- vagina & uterus: normal bimanual exam, normal palpation, uterine size normal, normal palpation, uterine shape normal, No Cervical tenderness present and non-tender Bimanual Exam- Adnexa, other: normal adnexae Back/Spine/Pelvis Back: no CVA tenderness Office Procedures Colposcopy Colposcopy: Pre-Procedure Counseling: Before beginning the procedure, I conducted comprehensive counseling with the patient. We thoroughly discussed the procedure itself, including its details, alternatives, and all associated risks. This included but not limited to the following complications such as bleeding, infection, and injury to the vagina, bladder, and vessels, as well as the potential need for transfusion with all its associated risks. Subsequently, the patient sign the consent. Pap smear result: Ascus/HPV E6 E7 positive Urine test in office = Negative Procedure: During the procedure, the following steps were performed: A speculum was inserted, and acetic acid was applied. Colposcopy was conducted, allowing visualization of the transformation zone. Acetowhite lesions were identified at the 4+6+12 o'clock position. Cervical biopsies were obtained from the 4+6+12 o'clock position, followed by an endocervical curettage (ECC). Vaginoscopy of the upper vagina revealed no evidence of aceto-white lesions. Hemostasis was achieved using Monsel solution, and the patient tolerated the procedure well. Post-Procedure Instructions: The patient was advised to promptly contact the office or the after hours answering service or go to the emergency room if experiencing a temperature exceeding 100.4?F, abdominal pain, nausea/vomiting, or bleeding. Additionally, the patient was instructed to abstain from vaginal intercourse and bathtub use. The patient confirmed understanding of these instructions. Discharge Instructions: The patient was instructed to schedule a follow-up appointment in 2 weeks for further evaluation and management. Please note that this note was generated using a voice recognition program, and errors may have occurred during selling underwriter. [id number] of cervix including upper vagina with biopsy and ECC Procedure code (CPT) selection complete Results AMB Test Urine AMB Test Urine Negative Last Edit by Philly Tirado CMA on 08/03/24 12:14 Assessment & Plan Assessment & Plan (1) ASCUS with positive high risk HPV cervical: Code(s): R87.610 - Atypical squamous cells of undetermined significance on cytologic smear of cervix (ASC-US); R87.810 - Cervical high risk human papillomavirus (HPV) DNA test positive Category: Medical Plan: Discussed with the patient the result of her abnormal pap, its significance, risk of progression, persistence, and regression. the false positive/negative rate of a Pap smear as a screening test in detecting cervical cancer and the indication for a diagnostic test -colposcopy, biopsy, endocervical curettage. Colposcopy/biopsy/ECC done, see procedure note. The patient verbalized understanding and agreed with the plan, all questions answered. (2) Uterine fibroid: Code(s): D25.9 - Leiomyoma of uterus, unspecified Category: Medical Plan: Discussed with the patient the results of the ultrasound and the size of the myomas. Discussed with the patient risk of myosarcoma and symptoms that are caused by myomas including but not limited to pelvic pain, pressure symptoms, abnormal uterine bleeding. In addition discussed with the patient options of treatment for myomas including: Serial ultrasounds periodically to follow-up on the size of the myoma while targeting the treatment against fibroids related symptoms ( control pills, Mirena IUD, progesterone treatment, GnRH agonist/antagonist, uterine artery embolization or endometrial ablation) versus surgical treatment including hysterectomy and or myomectomy. All pros and cons, risks and benefits of all options were discussed with the patient. The patient understands that delay in surgical treatment in case of myosarcoma can affect her prognosis, after further discussion, the patient decided to think about it and get back to us next visit (3) Abnormal uterine bleeding: Code(s): N93.9 - Abnormal uterine and vaginal bleeding, unspecified Category: Medical Plan: CBC, TSH, prolactin, HCG, ordered. Discussed with the patient the different causes of abnormal bleeding including thyroid disorders, uterine and ovarian pathology, endometrial hyperplasia, carcinoma and other potential causes. Discussed with the patient the work up including CBC (to r/o anemia), TSH, prolactin, pelvic Ultrasound, endometrial biopsy to r/o endometrial pathology. EMB done, see procedure note. All questions answered and the patient verbalized understanding. Instructed the patient to schedule an appointment for follow-up in 2 weeks. Orders: Orders AMB HCG Urine Test Today Z32.02 - Encounter for test, result negative TSH reflex Free T4 Today N93.9 - Abnormal uterine and vaginal bleeding, unspecified Prolactin Today N93.9 - Abnormal uterine and vaginal bleeding, unspecified AMB Colposcopy Today R87.610 - Atypical squamous cells of undetermined significance on cytologic smear of cervix (ASC-US), R87.810 - Cervical high risk human papillomavirus (HPV) DNA test positive HCG Quantitative Today N93.9 - Abnormal uterine and vaginal bleeding, unspecified Complete Blood Count no Diff Today N93.9 - Abnormal uterine and vaginal bleeding, unspecified Coding Level of Care Code Est Pt Level 3 (62824) Procedure Only Diagnoses ASCUS with positive high risk HPV cervical R87.610; R87.810 Uterine fibroid D25.9 Abnormal uterine bleeding N93.9 CPT Codes Colposcopy - CPT: 25353-Knwixagvq of cervix including upper vagina with biopsy and ECC ([id number])
[2024-08-03 12:13] VITALS: BMI 43.1
== END 2024-08-03 12:36 | disposition home or self-care (01) ==
LOC: HO.HWS 11:57
PROVIDERS: PCP Family Medicine; Visit Provider Obstetrics & Gynecology
DX: R87.610 Atypical squamous cells of undetermined significance on cytologic smear of cervix (ASC-US) (principal); R87.810 Cervical high risk human papillomavirus (HPV) DNA test positive; D25.9 Leiomyoma of uterus, unspecified; N93.9 Abnormal uterine and vaginal bleeding, unspecified; Z32.02 Encounter for pregnancy test, result negative
CPT/HCPCS: 57454; 99213

== ENCOUNTER 2024-08-03 11:57 | Outpatient (REF) | payer OTHER, SELFPAY | END 2024-08-03 11:58 | disposition home or self-care (01) | LOC: HO.LNP 11:57 | PROVIDERS: PCP Family Medicine; Visit Provider Obstetrics & Gynecology | DX: R87.610 Atypical squamous cells of undetermined significance on cytologic smear of cervix (ASC-US) (principal); R87.810 Cervical high risk human papillomavirus (HPV) DNA test positive; N93.9 Abnormal uterine and vaginal bleeding, unspecified; Z32.02 Encounter for pregnancy test, result negative | CPT/HCPCS: 57454; 81025; 88305 ==

== ENCOUNTER 2024-08-03 12:41 | Outpatient (REF) | payer OTHER, SELFPAY ==
[2024-08-03 14:02] LABS: Hematocrit 39.4 % (37.0-47.0); Hemoglobin 13.3 g/dl (12.0-16.0); Mean Corpuscular HGB Conc 33.8 g/dl (31.0-35.0); Mean Corpuscular Hemoglobin 27.2 pg (27.0-33.0); Mean Corpuscular Volume 80.6 fL (80.0-98.0); Mean Platelet Volume 9.5 fL (9.4-12.3); Platelet Count 325 X10*3/uL (160-400); Red Blood Count 4.89 X10*6/uL (4.20-5.50); Red Cell Distribution Width 12.8 % (11.0-16.0); White Blood Count 6.5 X10*3/uL (4.8-10.8)
[2024-08-03 14:57] LABS: HCG Quantitative < 2 mIU/mL; TSH reflex Free T4 1.48 uIU/mL (0.32-4.0)
[2024-08-04 07:37] LABS: Prolactin 8.8 ng/mL
== END 2024-08-03 12:42 | disposition home or self-care (01) ==
LOC: HO.LAB 12:41
PROVIDERS: PCP Family Medicine; Visit Provider Obstetrics & Gynecology
DX: Z32.02 Encounter for pregnancy test, result negative (principal); N93.9 Abnormal uterine and vaginal bleeding, unspecified
CPT/HCPCS: 36415; 84146; 84443; 84702; 85027

== ENCOUNTER 2024-09-06 15:12 | Outpatient (AMB) | payer OTHER, SELFPAY ==
--- NOTE | 2024-09-06 15:15 | MHC.OFFVIS ---
Vital Signs 09/06/24 15:16 Height 5 ft 4 in Weight 251 lb BMI 43.1 BP 116/78 Blood Pressure Location Lt brachial Position Sitting Intake Visit Reasons: colpo result/emb results Allergies No Known Allergies Allergy (Verified 09/06/24 15:16) HPI Comments Details: Presenting post colpo/EM for follow-up. The patient is doing well with no complaints. The pathology showed the following: A. Endometrium, biopsy: Benign intervals/early secretory endometrium; no atypia or carcinoma. B. Endocervix, curettage: Detached fragments of low-grade squamous intraepithelial lesion (mild dysplasia, JES 1), and endocervical glandular mucosa. C. Cervix, 4:00, biopsy: Low-grade squamous intraepithelial lesion (mild dysplasia, JES 1) involving endocervical glands. D. Cervix, 6:00, biopsy: Squamous and endocervical glandular mucosa; negative for dysplasia. E. Cervix, 12:00, biopsy: Low-grade squamous intraepithelial lesion (mild dysplasia, JES 1), involving endocervical glands. Comment: The atypical cells in the patient's previous Pap test ([facility] #[id number]) are similar to the mild dysplasia in the current biopsy The following workup for AUB was done.: H&H= 13.3/39.4 TSH, prolactin, hCG, GC and chlamydia were negative. Endometrial biopsy pathology showed benign intervals/early secretory endometrium; no atypia or carcinoma.. Co testing ascus HPV E6 E7 positive Pelvic ultrasound showed the following: The uterus is anteverted and measures 19.0 x 7.9 x 10.2 cm. 7.3 x 6.6 x 7.9 cm fibroid. Endometrial thickness is 9 mm, although visualization of the endometrium is somewhat limited due to the uterine fibroid. No significant free fluid. Nabothian cysts with associated echogenic foci characteristic of punctate calcifications. Right ovary measures 3.1 x 1.9 x 2.3 cm, volume 7.1 mL. Left ovary measures 4.0 x 2.4 x 2.2 cm, volume 11.0 mL PFSH Medical History (Updated 09/06/24 @ 15:44 by Edmundo Hathaway MD) Anxiety Hyperlipidemia Uterine fibroid Headache Surgical History No pertinent past surgical history Family History Mother Asthma High blood pressure Lupus Diabetes Thyroid disorder Father Alcoholism Sister High cholesterol Social History Household Members: Children Both parents involved: No Caregiver staying overnight: No Housing: Apartment Are you a primary customer care manager to a significant other at home: No Do you presently have visiting nurse or other home services: No 75 years or older and lives alone: No Alcohol intake: current Alcohol intake frequency: holidays/special occasions only Alcohol type: wine Patient Tobacco Use Status: Never used Tobacco e-Cigarette/Vaping Use: Never Used Special gaurav needs: No Agree to transfusion: Yes service: No Current occupational status: employed 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 Cognitive needs: No Hearing needs: No Vision needs: No Female Reproductive History Menstrual Age of Menarche: 10 Review of Systems Const All systems reviewed & are unremarkable except as noted in HPI and below Reports as per HPI and Reports no additional complaints GI Reports no additional complaints Reports no additional complaints Physical Exam Vital Signs: Last Vital Signs BP 116/78 09/06/24 15:16 BMI result Body Mass Index 43.1 Assessment & Plan Assessment & Plan (1) Uterine fibroid: Code(s): D25.9 - Leiomyoma of uterus, unspecified Category: Medical Plan: Discussed with the patient the results of the ultrasound and the size of the myomas. Discussed with the patient risk of myosarcoma and symptoms that are caused by myomas including but not limited to pelvic pain, pressure symptoms, abnormal uterine bleeding. In addition discussed with the patient options of treatment for myomas including: Serial ultrasounds periodically to follow-up on the size of the myoma while targeting the treatment against fibroids related symptoms ( control pills, Mirena IUD, progesterone treatment, GnRH agonist/antagonist, uterine artery embolization or endometrial ablation) versus surgical treatment including hysterectomy and/ or myomectomy. All pros and cons, risks and benefits of all options were discussed with the patient. The patient decided to proceed with definitive surgical management. Will refer to [facility] power driven brush maker minimally invasive surgery. Instructed the patient to call our office back in case a referral appointment is not scheduled, missed or canceled so that we will assist on rescheduling another appointment, the patient verbalized understanding agreed with the plan. (2) Dysplasia of cervix, low grade (JES 1): Code(s): N87.0 - Mild cervical dysplasia Category: Medical Plan: Discussed with the patient the pathology results of the colposcopy biopsies & endocervical curettage ( mild dysplasia-JES 1). Discussed with the patient the sensitivity specificity, positive and negative predictive value in detecting cervical cancer in addition discussed the regression, persistence and progression rates. Recommended co-testing in 12 months, if cytology and or HPV are abnormal will proceed was colposcopy biopsy and endocervical curettage, if lesions gets worse or stays persistent for 2 years will proceed with loop electric excision procedure. Since the patient elected to proceed with definite surgical management for myoma/AUB will undergo a hysterectomy. Coding Level of Care Code Est Pt Level 3 (02541) Diagnoses Uterine fibroid D25.9 Dysplasia of cervix, low grade (JES 1) N87.0
[2024-09-06 15:16] VITALS: BP 116/78; BMI 43.1
== END 2024-09-06 15:49 | disposition home or self-care (01) ==
LOC: HO.HWS 15:12
PROVIDERS: PCP Family Medicine; Visit Provider Obstetrics & Gynecology
DX: D25.9 Leiomyoma of uterus, unspecified (principal); N87.0 Mild cervical dysplasia
CPT/HCPCS: 99213

== ENCOUNTER → 2024-09-06 15:12 | Outpatient (BNVA) | payer OTHER, SELFPAY | PROVIDERS: PCP Family Medicine; Visit Provider Obstetrics & Gynecology ==